=== PATIENT | male | born 1985 | race African-American/Black ===

== ENCOUNTER 2019-03-21 18:10 | Emergency (ER) | payer SELFPAY ==
[~2019-03-21] VITALS: Ht 172.7 cm; Wt 73.6 kg
[2019-03-21 18:20] VITALS: TEMP 98.3
[2019-03-21] MEDS ORDERED: PERCOCET 325 MG1 TA2 PO (20:44)
[2019-03-21 21:01] VITALS: BP 159/94; PULSE 84
== END 2019-03-21 21:01 | disposition home or self-care (01) ==
LOC: COL.ER 18:10
DX: S42.032A Displaced fracture of lateral end of left clavicle, initial encounter for closed fracture (principal); S42.142A Displaced fracture of glenoid cavity of scapula, left shoulder, initial encounter for closed fracture; F17.200 Nicotine dependence, unspecified, uncomplicated; V19.9XXA Pedal cyclist (driver) (passenger) injured in unspecified traffic accident, initial encounter; Y92.410 Unspecified street and highway as the place of occurrence of the external cause
CPT/HCPCS: J1170

== ENCOUNTER 2021-05-17 00:36 | Observation (INO) | payer BC ==
[~2021-05-17] VITALS: Ht 177.8 cm; Wt 70.5 kg
[~2021-05-17 00:36] MED LIST: PERCOCET 325 MG1 TA2 PO
[2021-05-17 01:09] LABS: BASO % 0.5 % (0.0-2.0); EOS # 0.1 (0.0-0.7); EOS % 1.8 % (0-4.0); GRAN # 3.2 (1.4-6.5); GRAN % 51.9 % (42.2-75.2); HEMATOCRIT 38.4 % (42.0-52.0); HEMOGLOBIN 13.2 g/dl (13.5-18.0); LYMPH # 2.3 (1.2-3.4); LYMPH % 36.7 % (20.0-51.0); MEAN CELL VOLUME 89 fl (80.0-100.0); MEAN CORPUSCULAR HEMOGLOBIN 31 pg (27.0-31.0); MEAN CORPUSCULAR HGB CONC 34 g/dl (33.0-37.0); MONO # 0.6 (0.1-0.6); MONO % 8.9 % (1.7-9.3); PLATELET COUNT 364 K/mm3 (130-400); RED BLOOD COUNT 4.33 M/mm3 (4.20-5.60); REDCELL DISTRIBUTION WIDTH-CV 12.4 % (11.5-14.5)
[2021-05-17 01:21] LABS: ALBUMIN 4.6 gm/dL (3.5-5.0); BILIRUBIN,TOTAL 0.8 mg/dL (0.0-1.0); C-REACTIVE PROTEIN 0.6 mg/dL (0.0-0.9); CALCIUM 9.4 mg/dL (8.4-10.2); CREATININE, serum 1.01 (0.66-1.25); POTASSIUM 3.4 mmol/L (3.4-5.0); TOTAL PROTEIN 8.1 gm/dL (6.4-8.2)
[2021-05-17 04:12] VITALS: BP 151/98; PULSE 72; TEMP 98.1
--- NOTE | 2021-05-17 04:48 | NUR ---
Pt came for bloody stool. Pt is AOX4, independent. Currently NPO. LR started at 125 ml/hr, Bp is elevated. Pain rated 3/10. Will continue to monitor.
[2021-05-17 08:49] VITALS: BP 167/117; PULSE 68; TEMP 98.4
--- NOTE | 2021-05-17 09:30 | NUR ---
Dr Goetz notified of hypertension.
--- NOTE | 2021-05-17 09:30 | NUR ---
Patient alert and oriented, answers questions appropriately. See assessment. Abdomen soft, non tender, non distended. Bowel sounds active x4 quads. +Flatus. +Bowel movement. No c/o at this time.
--- NOTE | 2021-05-17 10:30 | NUR ---
Initial visit; Patient thanked Abstract Checker for looking in on him and offering God's blessings.
--- NOTE | 2021-05-17 11:02 | NUR ---
Karen met with the pt who stated his preference to return home once medically stable. The pt next of kin is Jose # [phone]. The pt is independent on all ADLs and does not use any DME. The pt does not have a PCP and will like one setup. The pt gets his medications from [facility]. The pt does not have a DPOA-HC and does not want to fill out one at this time. discharge needs: PCP setup. [employer] insurance. D/c: Home.
[2021-05-17 12:07] VITALS: BP 163/104; PULSE 65; TEMP 98.1
--- NOTE | 2021-05-17 12:31 | NUR ---
[facility] and [facility] can accept the pt. The PCP is Dr. Doll and his first appointment is 05/23/2021 at 11 am. No other needs.
--- NOTE | 2021-05-17 13:42 | NUR ---
Discharge instructions reviewed with patient, verbalized understanding. Surgical scrub bath sent with patient, as he will return tomorrow for small bowel resection. Discharged ambulatory to auto/home with friend at 1325.
== END 2021-05-17 13:25 | disposition home or self-care (01) ==
LOC: COL.ER 00:36 → SURG 03:21
PROVIDERS: Emergency Medicine; ADMIT Surgery
DX: K56.1 Intussusception (principal); N20.0 Calculus of kidney; F17.210 Nicotine dependence, cigarettes, uncomplicated
CPT/HCPCS: C9113; G0378; J2060; J7030; J7120; Q9967

== ENCOUNTER 2021-05-17 14:01 | Inpatient (IN) | payer BC ==
[~2021-05-17] VITALS: Ht 177.8 cm; Wt 67.0 kg
[2021-05-18] VITALS (10 sets, daily range): BP systolic 114–147; BP diastolic 64–106; PULSE 72–95; TEMP 97.2–98.4
--- NOTE | 2021-05-18 13:00 | NUR ---
Patient ambulated to isolation bay in PACU with steady gait. Alert and oriented. Confirmed surgery and consent signed. Covid test collected. Vitals obtained. 18G IV started in right hand with 5 attempts and labs collected, LR infusing well. Heart tones regular. Lungs CTA bilaterally. Bowel sounds +x4 quadrants. Rails up, non slip sock on, call light in reach.
[2021-05-18 14:24] LABS: HEMOGLOBIN 13.4 g/dl (13.5-18.0)
[2021-05-18 14:27] LABS: CALCIUM 9.3 mg/dL (8.4-10.2); CREATININE, serum 1.03 (0.66-1.25); POTASSIUM 3.7 mmol/L (3.4-5.0)
--- NOTE | 2021-05-18 17:23 | NUR ---
Patient received post op. alert & oriented. denies nausea & ready to eat. Vss on room air. Lap site x3, edges well approximated. Will monitor.
--- NOTE | 2021-05-18 18:10 | NUR ---
Patient resting in bed. Wanting to discharge. Called , patient to stay the night, he will not discharge tonight. Dinner ordered. Denies needs.
--- NOTE | 2021-05-18 18:54 | NUR ---
Patient tolerated dinner. Still upset about not being able to discharge. He was up to the bathroom. voiding without troubles. Vss. Report to cristourse
--- NOTE | 2021-05-18 21:41 | NUR ---
Pt is super mad about staying for the night. Pain rated 0/10. Vss are stable. Will continue to monitor.
[2021-05-19 04:33] VITALS: BP 139/93; PULSE 57; TEMP 97.6
--- NOTE | 2021-05-19 08:36 | NUR ---
Pt. wants to leave against medical advice. Dr. Goetz notified via telephone. Dr. Goetz reports pt.'s bill will not be paid by insurance if the patient leaves and he reports he will be at the hospital to see the patient within one hour or less. Pt. appears frustrated. IV has been removed. Pt. still in the room at this moment trying to decide what he is going to do.
--- NOTE | 2021-05-19 09:40 | NUR ---
Pt. decided to wait for Dr. Goetz to come see him before he left. Pt. wanted to leave quickly, KING Schilling handed pt. his paperwork and he did not want it to be reviewed by the RN. KING Marti walked pt. out safely. Pt. did not want to do any further testing or assessment or vital signs prior to leaving today.
== END 2021-05-19 09:40 | disposition home or self-care (01) | DRG 346 ==
LOC: INPTSU 05-18 12:12 → SURG 05-18 14:30
PROVIDERS: ADMIT Surgery
PROC: 0DJD4ZZ Inspection of Lower Intestinal Tract, Percutaneous Endoscopic Approach (ICD-10-PCS; principal; 2021-05-18 14:30)
DX: K56.1 Intussusception (principal); D64.9 Anemia, unspecified; Z87.442 Personal history of urinary calculi
CPT/HCPCS: A4314; C9113; G0378; J0360; J2060; J7030; J7120; Q9967